=== PATIENT | male | born 1975 | race Caucasian/White ===

== ENCOUNTER 2016-10-20 22:21 | Emergency (ER) | payer SELFPAY ==
[~2016-10-20] VITALS: Wt 81.5 kg
[~2016-10-20 22:21] MED LIST: BACTDS PO; CLIN-73 PO; IBUP-1542 PO; IBUP800T25 PO
[2016-10-21 00:02] VITALS: RESP 20; TEMP 99.1
[2016-10-21] MEDS ORDERED: KETOROLAC 60 MG INJ IM STA (02:00)
[2016-10-21] MEDS ORDERED: HYDROCODONE/APAP (5/325) TAB PO ONE (02:30)
[2016-10-21 02:48] VITALS: BP 131/94; PULSE 74
--- NOTE | 2016-10-21 03:19 | RADRPT ---
PROCEDURE: X-ray left knee CLINICAL INDICATION: Pain and swelling in the left knee TECHNIQUE: 3 views left knee. COMPARISON: None FINDINGS: No acute fracture or dislocation. Soft tissues unremarkable. IMPRESSION: No acute fracture. RPTAT: [facility] Physician Flora Date Time Electronically viewed and signed by Isabelle Khoury Physician on 10/21/2016 03:19 RS/
[2016-10-21] MEDS ORDERED: NAPR-688 PO (03:35)
[2016-10-21] MEDS ORDERED: SULF1TAB31 PO (03:35)
[2016-10-21] MEDS ORDERED: CEPH-443 PO (03:35)
[2016-10-21] MEDS ORDERED: HYDR-906 PO (03:35)
--- NOTE | 2016-10-21 03:46 | ERD ---
ER Documentation Chief Complaint Date/Time DATE: 10/21/16 TIME: 03:39 Chief Complaint Knee abscess HPI This 40-year-old male presented with pain along his anterior lower left leg with redness that has been increasing for 2 days since she first noticed it. He does have a small abrasion just below his patella is not sure how he got. He is still ambulatory does not have pain on weightbearing he mostly has pain when he tries to bend his knee. He also noticed that the area has been hot. He is otherwise healthy and has no history of diabetes and has not had abscesses or cellulitis before. ROS All systems reviewed and are negative except as per history of present illness. Medications Home Meds Active Scripts Cephalexin* (Keflex*) 500 Mg Capsule, 500 MG PO Q8, #30 CAP Prov:ANEUDY ALBRIGHT DO 10/21/16 Sulfamethoxazole/Trimethoprim* (Bactrim Ds* Tablet) 1 Each Tablet, 1 TAB PO BID , #20 TAB Prov:NATALEEANEUDYCHELSY GOOD 10/21/16 Hydrocodone/Acetaminophen ([place] 5-325 Tablet) 1 Each Tablet, 1 EACH PO Q6, #14 TAB Prov:NATALEEANEUDYCHELSY GOOD 10/21/16 Naproxen* (Naproxen*) 500 Mg Tablet, 500 MG PO BID Y for PAIN, #20 TAB Prov:NATALEEANEUDY DO 10/21/16 Ibuprofen* (Motrin*) 800 Mg Tab, 800 MG PO Q6, #30 TAB Prov:KAITLIN HICKMAN PA-C 03/09/15 Sulfamethoxazole-Trimethoprim* (Bactrim* DS) 800-160 Mg Tab, 1 TAB PO BID for 10 Days, TAB Prov:KAITLIN HICKMAN PA-C 03/09/15 Clindamycin Hcl* (Clindamycin Hcl*) 300 Mg Capsule, 300 MG PO TID for 10 Days, CAP Prov:TAMAR STREET NP 03/07/15 Ibuprofen* (Motrin*) 600 Mg Tab, 600 MG PO Q6, #30 TAB Prov:NATE MIJARES 03/05/15 Sulfamethoxazole-Trimethoprim* (Bactrim* DS) 800-160 Mg Tab, 1 TAB PO BID for 7 Days, TAB Prov:NATE MIJARES 03/05/15 Allergies Allergies: Coded Allergies: No Known Drug Allergies (Verified Allergy, Unknown, 03/07/15) PMhx/Soc Medical and Surgical Hx: pt denies Medical Hx, pt denies Surgical Hx Hx Psychiatric Problems: No Hx Miscellaneous Medical Probl: No Hx Alcohol Use: No Hx Substance Use: No Hx Tobacco Use: No Smoking Status: Never smoker Physical Exam Vitals Vital Signs Date Time Temp Pulse Resp B/P Pulse Ox O2 Delivery O2 Flow Rate FiO2 10/21/16 02:48 74 131/94 10/21/16 00:02 99.1 62 20 133/84 98 Room Air 10/20/16 22:39 98.3 69 20 123/80 98 Physical Exam Const: [] No distress Skin: No petechiae or rashes Back: No midline or flank tenderness Ext: Left leg with calor and erythema from just above the level of the knee down to the lower haque. It is very mild swelling around the knee. Patient has no pain on loadbearing. No ligamentous laxity. Neur: Awake and alert and oriented 3, no focal deficits, normal gait Psych: Normal Mood and Affect Results 24 hrs Current Medications Medications (Trade) Dose Ordered Sig/Eric Route PRN Reason Start Time Stop Time Status Last Admin Dose Admin Ketorolac Tromethamine (Toradol) 60 mg ONCE STAT IM 10/21/16 02:00 10/21/16 02:01 DC 10/21/16 02:03 Acetaminophen/ Hydrocodone Bitart ([place] (5/325)) 1 tab ONCE ONCE PO 10/21/16 02:30 10/21/16 02:31 DC 10/21/16 02:05 Procedures/MDM Cellulitis of left lower leg and knee with visible skin defect that could be over out of bacterial infection. This point I believe that a septic joint is much less likely as the patient has had no fevers or chills. After he was given Toradol and [place] he said that it felt fine and then he was walking in with no trouble. X-ray is obtained and shows no obvious fluid collections or serious soft tissue swelling with normal bony anatomy. Also the patient has cellulitis that is covering any area of the joint aspiration could be performed. Patient does not have primary care follow-up. I am going to discharge with Bactrim and Keflex naproxen and a few [place] pills I am instructing him to return emergency room if it looks like the redness is spreading in any way or if he has any significant knee pain that limits his ambulation. Departure Diagnosis: Primary Impression: Left leg cellulitis Condition: Stable Patient Instructions: Cellulitis Referrals: [facility] YOU HAVE RECEIVED A MEDICAL SCREENING EXAM AND THE RESULTS INDICATE THAT YOU DO NOT HAVE A CONDITION THAT REQUIRES URGENT TREATMENT IN THE EMERGENCY DEPARTMENT. FURTHER EVALUATION AND TREATMENT OF YOUR CONDITION CAN WAIT UNTIL YOU ARE SEEN IN YOUR DOCTORS OFFICE WITHIN THE NEXT 1-2 DAYS. IT IS YOUR RESPONSIBILITY TO MAKE AN APPOINTMENT FOR FOLOW-UP CARE. IF YOU HAVE A PRIMARY DOCTOR --you should call your primary doctor and schedule an appointment IF YOU DO NOT HAVE A PRIMARY DOCTOR YOU CAN CALL OUR PHYSICIAN REFERRAL HOTLINE AT IF YOU CAN NOT AFFORD TO SEE A PHYSICIAN YOU CAN CHOSE FROM THE FOLLOWING [facility] [address] [facility] [address] [facility] [address] [facility] [address] [facility] [address] [facility] [address] Additional Instructions: Return to this facility in 2 DAYS for a follow-up exam.Return sooner if your condition worsens. ANEUDY ALBRIGHT DO October 21, 2016 03:46
== END 2016-10-21 03:43 | disposition home or self-care (01) ==
LOC: E/R 22:21
DX: L03.116 Cellulitis of left lower limb (principal)
CPT/HCPCS: 73562; 96372; 99284; J1885

== ENCOUNTER 2017-04-16 09:45 | Emergency (ER) | payer MEDICAID ==
[~2017-04-16] VITALS: Ht 170.2 cm; Wt 80.0 kg
[~2017-04-16 09:45] MED LIST changes: +CEPH-443 PO; +HYDR-906 PO; +NAPR-688 PO; +SULF1TAB31 PO
[2017-04-16 10:55] VITALS: Ht 170.2 cm; Wt 80.0 kg
[2017-04-16] MEDS ORDERED: KETOROLAC 30 MG INJ IM STA (11:17)
[2017-04-16] MEDS ORDERED: ONDANSETRON (ODT) 4 MG TAB ODT STA (11:17)
--- NOTE | 2017-04-16 12:01 | ERD ---
ER Documentation Chief Complaint Chief Complaint left low back x 2 days; no painful urination HPI This is a 41-year-old male who presents the emergency department today complaining of left-sided flank pain for the past 2 days. States he took Tylenol for pain. States in the past he was told he had a kidney stone. He has some nausea but no vomiting. Denies any loss of bowel or bladder control. Denies any fevers or chills. Denies any significant trauma. States he works in construction. Denies any hematuria or dysuria. ROS All systems reviewed and are negative except as per history of present illness. Medications Home Meds Active Scripts Acetaminophen* (Tylophen*) 500 Mg Capsule, 1 CAP PO Q6H Y for PAIN AND OR ELEVATED TEMP, #30 CAP Prov:IDALIA ERWIN PA-C 04/16/17 Cyclobenzaprine Hcl* (Cyclobenzaprine Hcl*) 10 Mg Tablet, 10 MG PO QHS, #7 TAB Prov:IDALIA ERWIN PA-C 04/16/17 Naproxen* (Naprosyn*) 500 Mg Tablet, 500 MG PO BID Y for PAIN AND/OR INFLAMMATION, #30 TAB Prov:IDALIA ERWIN PA-C 04/16/17 Cephalexin* (Keflex*) 500 Mg Capsule, 500 MG PO Q8, #30 CAP Prov:ANEUDY ALBRIGHT DO 10/21/16 Sulfamethoxazole/Trimethoprim* (Bactrim Ds* Tablet) 1 Each Tablet, 1 TAB PO BID , #20 TAB Prov:ANEUDY ALBRIGHT DO 10/21/16 Hydrocodone/Acetaminophen ([place] 5-325 Tablet) 1 Each Tablet, 1 EACH PO Q6, #14 TAB Prov:ANEUDY ALBRIGHT DO 10/21/16 Naproxen* (Naproxen*) 500 Mg Tablet, 500 MG PO BID Y for PAIN, #20 TAB Prov:ANEUDY ALBRIGHT DO 10/21/16 Ibuprofen* (Motrin*) 800 Mg Tab, 800 MG PO Q6, #30 TAB Prov:KAITLIN HICKMAN PA-C 03/09/15 Sulfamethoxazole-Trimethoprim* (Bactrim* DS) 800-160 Mg Tab, 1 TAB PO BID for 10 Days, TAB Prov:KAITLIN HICKMAN PA-C 03/09/15 Clindamycin Hcl* (Clindamycin Hcl*) 300 Mg Capsule, 300 MG PO TID for 10 Days, CAP Prov:TAMAR STREETRob SHELLFISH PROCESSING MACHINE TENDER 03/07/15 Ibuprofen* (Motrin*) 600 Mg Tab, 600 MG PO Q6, #30 TAB Prov:NATE MIJARES 03/05/15 Sulfamethoxazole-Trimethoprim* (Bactrim* DS) 800-160 Mg Tab, 1 TAB PO BID for 7 Days, TAB Prov:NATE MIJARES 03/05/15 Allergies Allergies: Coded Allergies: No Known Drug Allergies (Verified Allergy, Unknown, 04/16/17) PMhx/Soc Medical and Surgical Hx: pt denies Medical Hx, pt denies Surgical Hx Hx Psychiatric Problems: No Hx Miscellaneous Medical Probl: No Hx Alcohol Use: Yes Hx Substance Use: No Hx Tobacco Use: No Physical Exam Vitals Vital Signs Date Time Temp Pulse Resp B/P Pulse Ox O2 Delivery O2 Flow Rate FiO2 04/16/17 10:55 98.2 62 16 131/69 99 Physical Exam Const: NAD Head: Atraumatic Eyes: Normal Conjunctiva ENT: Normal External Ears, Nose and Mouth. Neck: Full range of motion..~ No meningismus. Resp: Clear to auscultation bilaterally Cardio: Regular rate and rhythm, no murmurs Abd: Soft, non tender, non distended. Normal bowel sounds Skin: No petechiae or rashes Back: Lumbar spine No midline tenderness. Left-sided paraspinal tenderness. No CVA tenderness. Full active range of motion. Negative straight leg raise. Pulses 2+. Distal neurovascularly intact. Ext: No cyanosis, or edema Neur: Awake and alert Psych: Normal Mood and Affect Results 24 hrs Laboratory Tests Test 04/16/17 11:30 Urine Color YELLOW Urine Clarity CLEAR Urine pH 6.0 Urine Specific [place] 1.019 Urine Ketones NEGATIVEmg/dL Urine Nitrite NEGATIVEmg/dL Urine Bilirubin NEGATIVEmg/dL Urine Urobilinogen NEGATIVEmg/dL Urine Leukocyte Esterase NEGATIVELeu/ul Urine Hemoglobin NEGATIVEmg/dL Urine Glucose NEGATIVEmg/dL Urine Total Protein NEGATIVEmg/dl Current Medications Medications (Trade) Dose Ordered Sig/Eric Route PRN Reason Start Time Stop Time Status Last Admin Dose Admin Ketorolac Tromethamine (Toradol) 30 mg ONCE STAT IM 04/16/17 11:17 04/16/17 11:18 DC 04/16/17 11:27 Ondansetron HCl (Zofran Odt) 4 mg ONCE STAT ODT 04/16/17 11:17 04/16/17 11:18 DC 04/16/17 11:26 Procedures/MDM This a 41-year-old male who presents the emergency department today complaining of left-sided back pain. Patient denies any trauma he has no midline tenderness on physical exam I do not feel he requires imaging at this time. Patient indicated that he does have a history of kidney stones in the past and is unsure if this is what is causing the problem. States it had been seen on a previous x-ray. Patient denied any hematuria or dysuria however I did obtain a UA UA is negative for infection or hematuria. Patient for pyelonephritis or nephrolithiasis. Patient is afebrile and otherwise well-appearing. Symptoms at this time is consistent with back pain likely musculoskeletal sprain versus strain. Patient was given Toradol and Zofran here in the emergency department. He will be given a prescription for short course of Naprosyn, Flexeril, and Tylenol for home. Instructed to apply ice and heat intermittently. There has been no significant trauma low suspicion for acute fracture dislocation. He has no loss of bowel or bladder control have low suspicion for cauda equina or abscess. At this time the patient is stable for discharge and outpatient management. Patient should follow up with their PCP in the next 1-2 days. They may return to the emergency department sooner for any persistent or worsening of symptoms. Patient understood and agreed with the plan. Departure Diagnosis: Primary Impression: Back pain Back pain location: low back pain Chronicity: acute Back pain laterality: left Sciatica presence: without sciatica Qualified Code: M54.5 - Acute left- sided low back pain without sciatica Condition: IDALIA Funk PA-C Apr 16, 2017 12:01
[2017-04-16] MEDS ORDERED: NAPR-260 PO (12:08)
[2017-04-16] MEDS ORDERED: CYCL-319 PO (12:08)
[2017-04-16] MEDS ORDERED: ACET500C5 PO (12:09)
== END 2017-04-16 12:20 | disposition home or self-care (01) ==
LOC: FTE 09:45
DX: M54.5 Low back pain (principal)
CPT/HCPCS: 81003; 96372; J1885; Z7502; Z7610

== ENCOUNTER 2018-05-31 08:58 | Emergency (ER) | END 2018-05-31 10:11 | disposition home or self-care (01) ==

== ENCOUNTER 2018-06-24 13:28 | Emergency (ER) | payer MEDICAID ==
[~2018-06-24] VITALS: Ht 165.1 cm; Wt 68.2 kg
[~2018-06-24 13:28] MED LIST changes: +ACET500C5 PO; +BACL10TA PO; -CLIN-73 PO; +CLIN300C10 PO; +CYCL10TA7 PO; +HYDR-4011 PO; -HYDR-906 PO; -IBUP800T25 PO; +IBUP800T48 PO; +NAPR-985 PO
[2018-06-24 14:03] VITALS: BP 127/73; PULSE 72; RESP 18; Ht 165.1 cm; Wt 68.2 kg
[2018-06-24] MEDS ORDERED: IBUP-1542 PO (14:25)
[2018-06-24] MEDS ORDERED: OSEL75CA23 PO (14:25)
[2018-06-24] MEDS ORDERED: D-ME473S2 PO (14:25)
--- NOTE | 2018-06-24 14:27 | ERD ---
ER Documentation Chief Complaint Chief Complaint FEVER WITH COUGH/CONGESTION & FINGER NUMBNESS/TINGLING YESTERDAY HPI This 42-year-old male presents with 1 day history of cough, congestion, body aches. He has a low-grade fever triage. Denies vomiting, chest pain, abdominal pain. ROS All systems reviewed and are negative except as per history of present illness. Medications Home Meds Active Scripts Oseltamivir Phosphate* (Tamiflu*) 75 Mg Capsule, 75 MG PO BID for 5 Days, CAP Prov:BRAULIO TORRES MD 06/24/18 Dextromethorphan Hb-Promethazine Hcl* (Promethazine DM* Syrup) 473 Ml Syrup, 5 ML PO Q6 PRN for COUGH for 5 Days, ML Prov:BRAULIO TORRES MD 06/24/18 Ibuprofen* (Motrin*) 600 Mg Tab, 600 MG PO Q6, #20 TAB Prov:BRAULIO TORRES MD 06/24/18 Baclofen* (Baclofen*) 10 Mg Tablet, 10 MG PO Q8, #15 TAB Prov:KRISTOPHER TOSCANO PA-C 05/31/18 Ibuprofen* (Motrin*) 600 Mg Tab, 600 MG PO Q6, #30 TAB Prov:KRISTOPHER TOSCANO PA-C 18 Acetaminophen* (Tylophen*) 500 Mg Capsule, 1 CAP PO Q6H PRN for PAIN AND OR ELEVATED TEMP, #30 CAP Prov:IDALIA ERWIN PA-C 04/16/17 Cyclobenzaprine Hcl* (Cyclobenzaprine Hcl*) 10 Mg Tablet, 10 MG PO QHS, #7 TAB Prov:IDALIA ERWIN PA-C 04/16/17 Naproxen* (Naprosyn*) 500 Mg Tablet, 500 MG PO BID PRN for PAIN AND/OR INFLAMMATION, #30 TAB Prov:IDALIA ERWIN PA-C 04/16/17 Cephalexin* (Keflex*) 500 Mg Capsule, 500 MG PO Q8, #30 CAP Prov:ANEUDY ALBRIGHT DO 10/21/16 Sulfamethoxazole/Trimethoprim* (Bactrim Ds* Tablet) 1 Each Tablet, 1 TAB PO BID, #20 TAB Prov:ANEUDY ALBRIGHT DO 10/21/16 Hydrocodone/Acetaminophen ([place] 5-325 Tablet) 1 Each Tablet, 1 EACH PO Q6, #14 TAB Prov:ANEUDY ALBRIGHT DO 10/21/16 Naproxen* (Naproxen*) 500 Mg Tablet, 500 MG PO BID PRN for PAIN, #20 TAB Prov:ANEUDY ALBRIGHT DO 10/21/16 Ibuprofen* (Motrin*) 800 Mg Tab, 800 MG PO Q6, #30 TAB Prov:KAITLIN HICKMAN PA-C 03/09/15 Sulfamethoxazole-Trimethoprim* (Bactrim* DS) 800-160 Mg Tab, 1 TAB PO BID for 10 Days, TAB Prov:KAITLIN HICKMAN PA-C 03/09/15 Clindamycin Hcl* (Clindamycin Hcl*) 300 Mg Capsule, 300 MG PO TID for 10 Days, CAP Prov:TAMAR STREET NP 03/07/15 Ibuprofen* (Motrin*) 600 Mg Tab, 600 MG PO Q6, #30 TAB Prov:NATE MIJARES C 03/05/15 Sulfamethoxazole-Trimethoprim* (Bactrim* DS) 800-160 Mg Tab, 1 TAB PO BID for 7 Days, TAB Prov:DYLLAN,NATE C 03/05/15 Allergies Allergies: Coded Allergies: No Known Drug Allergies (Verified Allergy, Unknown, 04/16/17) PMhx/Soc Medical and Surgical Hx: pt denies Medical Hx, pt denies Surgical Hx Hx Psychiatric Problems: No Hx Miscellaneous Medical Probl: No Hx Alcohol Use: Yes Hx Substance Use: No Hx Tobacco Use: No Smoking Status: Current some day smoker FmHx Family History: No diabetes, No coronary disease, No other Physical Exam Vitals Vital Signs Date Temp Pulse Resp B/P (MAP) Pulse Ox O2 O2 Flow FiO2 Time Delivery Rate 06/24/18 100.4 72 18 127/73 99 14:03 (91) Physical Exam Const: No acute distress Head: Atraumatic Eyes: Normal Conjunctiva ENT: Normal External Ears, Nose and Mouth. TMs and oropharynx normal. Neck: Full range of motion. No meningismus. Resp: Clear to auscultation bilaterally . coarse cough without rales, wheezing or retractions. Cardio: Regular rate and rhythm, no murmurs Abd: Soft, non tender, non distended. Normal bowel sounds Skin: No petechiae or rashes Back: No midline or flank tenderness Ext: No cyanosis, or edema Neur: Awake and alert Psych: Normal Mood and Affect Results 24 hrs Current Medications Medications Dose Sig/Eric Start Time Status Last (Trade) Ordered Route PRN Stop Time Admin Dose Reason Admin Ibuprofen 600 mg ONCE ONCE 06/24/18 (Motrin) PO 14:30 06/24/18 14:31 Procedures/MDM Patient presents with URI symptoms, febrile illness and body aches since yesterday. He may have influenza. We will treat empirically with fever control, promethazine, Tamiflu, primary care follow-up and return precautions. He has no evidence of hypoxemia, respiratory distress, signs of pneumonia on clinical exam, abdominal pain or chest pain. The patient was stable with no new complaints during the ER course. Clinically, there is no current evidence to suggest meningitis, sepsis, acute abdomen, pneumonia, stroke, acute coronary syndrome, pulmonary embolism, aortic dissection or any other emergent condition appearing to require further evaluation or hospitalization. Patient counseled regarding my diagnostic impression and care plan. Prior to discharge all questions answered. Pt agrees with treatment plan and understands strict return precautions. Pt is instructed to follow up with primary care provider within 24- 48 hours. Precautionary instructions provided including instructions to return to the ER if not improving or for any worsening or changing symptoms or concerns. Departure Diagnosis: Primary Impression: URI (upper respiratory infection) URI type: unspecified URI Qualified Codes: J06.9 - Acute upper respiratory infection, unspecified Condition: Stable Patient Instructions: Influenza (Adult), Uri, Viral, No Abx (Adult) Additional Instructions: Probablamente un virus que dura 2-4 hodge. cheque otro vez en el proximo barby para mas simptomas- vomito, dolor, martha, problemas con respirando, o con romero doctor primario. BRAULIO TORRES MD Jun 24, 2018 14:27
[2018-06-24] MEDS ORDERED: IBUPROFEN 600 MG TAB PO ONE (14:30)
== END 2018-06-24 14:35 | disposition home or self-care (01) ==
LOC: FTE 13:28
DX: J06.9 Acute upper respiratory infection, unspecified (principal); F17.210 Nicotine dependence, cigarettes, uncomplicated
CPT/HCPCS: Z7502; Z7610; 99283